=== PATIENT | female | born 1970 | race Caucasian/White ===

== ENCOUNTER 2016-08-18 20:40 | Emergency (ER) | payer OTHER ==
[~2016-08-18] VITALS: Ht 177.8 cm; Wt 70.5 kg
[2016-08-18] MEDS ORDERED: LEVO125T4 PO (20:58)
[2016-08-18] MEDS ORDERED: BUTA1CAP16 PO (20:58)
[2016-08-18] MEDS ORDERED: FURO80 PO (20:58)
[2016-08-18] MEDS ORDERED: PROM25 PO (20:58)
[2016-08-18] MEDS ORDERED: SPIR100T PO (20:58)
[2016-08-18] MEDS ORDERED: CIPR-278 PO (20:58)
[2016-08-18] MEDS ORDERED: FERR325C PO (20:58)
[2016-08-18 21:21] LABS: BASOPHILS # (AUTO) 0.02 K/uL (0.00-0.20); BASOPHILS % (AUTO) 0.6 % (0.0-2.0); EOSINOPHILS # (AUTO) 0.05 K/uL (0.00-0.70); EOSINOPHILS % (AUTO) 1.47 % (1.0-6.0); HEMATOCRIT 29.7 % (36-46); HEMOGLOBIN 9.5 g/dL (12.0-16.0); LYMPHOCYTES # (AUTO) 1.3 K/uL (1.0-4.8); LYMPHOCYTES % (AUTO) 38.1 % (22.0-44.0); MEAN CORPUSCULAR HEMOGLOBIN 24.3 pg (26.0-34.0); MEAN CORPUSCULAR VOLUME 76 fL (80-100); MONOCYTES # (AUTO) 0.3 K/uL (0.1-1.0); MONOCYTES % (AUTO) 8.2 % (2.0-9.0); NEUTROPHILS # (AUTO) 1.7 K/uL (1.8-7.7); NEUTROPHILS % (AUTO) 51.7 % (40.0-70.0); PLATELET COUNT (AUTO) 204 K/uL (150-450); RED BLOOD CELL COUNT(AUTO) 3.91 MIL/uL (4.00-5.20); RED CELL DISTRIBUTION WIDTH 19.8 % (11.5-14.5); WHITE BLOOD COUNT (AUTO) 3.4 K/uL (4.5-11.0)
[2016-08-18 21:29] LABS: ANION GAP 7 mmol/L (8-16); CALCIUM, TOTAL 8.3 mg/dL (8.8-10.5); CARBON DIOXIDE 27 mmol/L (22-29); CHLORIDE 108 mmol/L (98-107); CREATININE 0.91 mg/dL (0.60-1.30); GLOMERULAR FILTR. RATE CALC > 60 mL/min (>60); POTASSIUM 3.6 mmol/L (3.5-5.1); SODIUM SERUM 142 mmol/L (136-145); UREA NITROGEN, BLOOD 15 mg/dL (7-18)
[2016-08-18] MEDS ORDERED: MORPHINE SULFATE 4 MG/ML SYRINGE IVP ONE (21:30)
[2016-08-18] MEDS ORDERED: SODIUM CHLORIDE 0.9% 1,000 ML IV ONE (21:30)
[2016-08-18] MEDS ORDERED: ONDANSETRON HCL 4 MG/2 ML VIAL IVP ONE (21:30)
[2016-08-18 21:36] LABS: ALANINE AMINOTRANSFERASE 31 U/L (12-78); ALBUMIN 3.3 g/dL (3.4-5.0); ASPARTATE AMINOTRANSFERASE 46 U/L (15-37); BILIRUBIN,TOTAL 0.2 mg/dL (0.1-1.0); TOTAL PROTEIN, SERUM 6.9 g/dL (6.4-8.2)
[2016-08-18 21:37] LABS: RBC MORPHOLOGY COMMENT ABNORMAL RBC MORPH
[2016-08-18 22:06] LABS: APPEARANCE,URINE CLEAR (CLEAR); GLUCOSE, URINE (UA) NEGATIVE (NEGATIVE); KETONES,URINE NEGATIVE (NEGATIVE); LEUKOCYTE ESTERASE ,URINE NEGATIVE (NEGATIVE); OCCULT BLOOD,URINE NEGATIVE (NEGATIVE); PROTEIN,URINE NEGATIVE (NEGATIVE)
[2016-08-18 22:16] LABS: ADD UA MICROSCOPIC NO
[2016-08-18 23:00] VITALS: BP 129/70
== END 2016-08-18 23:50 | disposition home or self-care (01) ==
LOC: EMS 20:46
DX: R10.9 Unspecified abdominal pain (principal); G43.909 Migraine, unspecified, not intractable, without status migrainosus
CPT/HCPCS: 36415; 80053; 81003; 83690; 84703; 85025; 96361; 96374; 96375; 99284; J2270; J2405; J7030

== ENCOUNTER 2017-01-16 12:10 | Emergency (ER) | payer OTHER, MEDICAID ==
[~2017-01-16] VITALS: Ht 177.8 cm; Wt 68.2 kg
[~2017-01-16 12:10] MED LIST: BUTA1CAP16 PO; CIPR-278 PO; FERR325C PO; FURO80 PO; LEVO125T4 PO; PROM25 PO; SPIR100T PO
[2017-01-16 13:15] LABS: BASOPHILS # (AUTO) 0.05 K/uL (0.00-0.20); BASOPHILS % (AUTO) 1.5 % (0.0-2.0); EOSINOPHILS # (AUTO) 0.05 K/uL (0.00-0.70); EOSINOPHILS % (AUTO) 1.54 % (1.0-6.0); HEMATOCRIT 29.9 % (36-46); HEMOGLOBIN 9.7 g/dL (12.0-16.0); LYMPHOCYTES % (AUTO) 30.4 % (22.0-44.0); MEAN CORPUSCULAR HEMOGLOBIN 25.5 pg (26.0-34.0); MEAN CORPUSCULAR HGB CONC 32.4 G/dL (31.0-37.0); MEAN CORPUSCULAR VOLUME 79 fL (80-100); MONOCYTES # (AUTO) 0.3 K/uL (0.1-1.0); MONOCYTES % (AUTO) 8.9 % (2.0-9.0); NEUTROPHILS # (AUTO) 1.9 K/uL (1.8-7.7); NEUTROPHILS % (AUTO) 57.6 % (40.0-70.0); PLATELET COUNT (AUTO) 243 K/uL (150-450); RED CELL DISTRIBUTION WIDTH 17.6 % (11.5-14.5); WHITE BLOOD COUNT (AUTO) 3.4 K/uL (4.5-11.0)
[2017-01-16 13:16] LABS: RBC MORPHOLOGY COMMENT ABNORMAL RBC MORPH
[2017-01-16] MEDS ORDERED: ONDANSETRON HCL 4 MG/2 ML VIAL IVP ONE ×2 (14:30→17:15)
[2017-01-16] MEDS ORDERED: MORPHINE SULFATE 4 MG/ML SYRINGE IVP ONE (14:30)
[2017-01-16 14:39] LABS: ANION GAP 9 mmol/L (8-16); CARBON DIOXIDE 27 mmol/L (22-29); CHLORIDE 107 mmol/L (98-107); CREATININE 0.71 mg/dL (0.60-1.30); GLOMERULAR FILTR. RATE CALC > 60 mL/min (>60); POTASSIUM 4.1 mmol/L (3.5-5.1); SODIUM SERUM 143 mmol/L (136-145); UREA NITROGEN, BLOOD 13 mg/dL (7-18)
[2017-01-16 14:45] LABS: ALANINE AMINOTRANSFERASE 48 U/L (12-78); ALBUMIN 3.2 g/dL (3.4-5.0); ASPARTATE AMINOTRANSFERASE 53 U/L (15-37); BILIRUBIN,TOTAL 0.3 mg/dL (0.1-1.0); TOTAL PROTEIN, SERUM 7.2 g/dL (6.4-8.2)
[2017-01-16 14:49] LABS: INR 0.9 (0.9-1.1)
[2017-01-16 14:53] LABS: B-TYPE NATRIURETIC PEPTIDE 19 pg/mL (0-100)
[2017-01-16 15:09] LABS: APPEARANCE,URINE CLEAR (CLEAR); GLUCOSE, URINE (UA) NEGATIVE (NEGATIVE); KETONES,URINE NEGATIVE (NEGATIVE); LEUKOCYTE ESTERASE ,URINE NEGATIVE (NEGATIVE); OCCULT BLOOD,URINE NEGATIVE (NEGATIVE); PH,URINE 5.5 (5.0-8.0); PROTEIN,URINE NEGATIVE (NEGATIVE)
[2017-01-16 15:10] LABS: ADD UA MICROSCOPIC NO
[2017-01-16] MEDS ORDERED: HYDROmorphone 2 MG/ML SYRINGE IVP ONE (17:15)
[2017-01-16 17:30] VITALS: BP 122/85
== END 2017-01-16 18:22 | disposition home or self-care (01) ==
LOC: EMS 12:13
DX: R18.8 Other ascites (principal); N20.0 Calculus of kidney; N13.4 Hydroureter; D64.9 Anemia, unspecified
CPT/HCPCS: 36415; 49083; 74176; 76942; 80053; 81003; 83880; 84703; 85025; 85610; 85730; 96374; 96375; 96376; 99285; J1170; J2270; J2405

== ENCOUNTER 2017-03-21 07:13 | Emergency (ER) | payer OTHER, MEDICAID ==
[~2017-03-21] VITALS: Ht 175.3 cm; Wt 69.0 kg
[~2017-03-21 07:13] MED LIST changes: -BUTA1CAP16 PO; -CIPR-278 PO; -PROM25 PO
[2017-03-21] MEDS ORDERED: OxyCODONE HCL/ACETAMINOPHEN 5-325 MG TABLET PO ONE (08:00)
[2017-03-21 08:06] LABS: APPEARANCE,URINE CLOUDY (CLEAR); GLUCOSE, URINE (UA) NEGATIVE (NEGATIVE); KETONES,URINE NEGATIVE (NEGATIVE); LEUKOCYTE ESTERASE ,URINE NEGATIVE (NEGATIVE); OCCULT BLOOD,URINE NEGATIVE (NEGATIVE); PH,URINE 5.5 (5.0-8.0); PROTEIN,URINE NEGATIVE (NEGATIVE)
[2017-03-21 08:12] LABS: ADD UA MICROSCOPIC YES
[2017-03-21 08:13] LABS: RBC,URINE None Seen /HPF (0-2); SQUAMOUS EPITHELIAL CELL,UR Many /LPF (None Seen); WBC,URINE 0-2 /HPF (0-5)
[2017-03-21 12:48] VITALS: BP 121/83
== END 2017-03-21 12:55 | disposition home or self-care (01) ==
LOC: EMS 07:14
DX: R07.89 Other chest pain (principal); R30.9 Painful micturition, unspecified; W19.XXXA Unspecified fall, initial encounter; Y93.89 Activity, other specified; Y92.89 Other specified places as the place of occurrence of the external cause; Y99.8 Other external cause status
CPT/HCPCS: 99285

== ENCOUNTER 2017-03-25 07:56 | Emergency (ER) | payer OTHER, MEDICAID ==
[~2017-03-25] VITALS: Ht 177.8 cm; Wt 68.2 kg
[2017-03-25] MEDS ORDERED: HYDROCODONE/ACETAMINOPHEN 5-325 MG TABLET PO ONE (08:45)
[2017-03-25] MEDS ORDERED: ONDANSETRON HCL 4 MG TABLET PO ONE (08:45)
[2017-03-25 09:07] LABS: GLUCOSE, URINE (UA) NEGATIVE (NEGATIVE); KETONES,URINE NEGATIVE (NEGATIVE); LEUKOCYTE ESTERASE ,URINE NEGATIVE (NEGATIVE); OCCULT BLOOD,URINE NEGATIVE (NEGATIVE); PH,URINE 5.5 (5.0-8.0); PROTEIN,URINE TRACE (NEGATIVE)
[2017-03-25 09:15] LABS: ANION GAP 11 mmol/L (8-16); CALCIUM, TOTAL 8.9 mg/dL (8.8-10.5); CARBON DIOXIDE 23 mmol/L (22-29); CHLORIDE 107 mmol/L (98-107); CREATININE 0.76 mg/dL (0.60-1.30); GLOMERULAR FILTR. RATE CALC > 60 mL/min (>60); POTASSIUM 4.1 mmol/L (3.5-5.1); SODIUM SERUM 141 mmol/L (136-145); UREA NITROGEN, BLOOD 18 mg/dL (7-18)
[2017-03-25 09:16] LABS: ADD UA MICROSCOPIC YES; APPEARANCE,URINE SLIGHTLY CLOUDY (CLEAR)
[2017-03-25 09:18] LABS: RBC,URINE None Seen /HPF (0-2)
[2017-03-25 09:19] LABS: SQUAMOUS EPITHELIAL CELL,UR Many /LPF (None Seen)
[2017-03-25 09:21] LABS: ALANINE AMINOTRANSFERASE 29 U/L (12-78); ALBUMIN 3.7 g/dL (3.4-5.0); ASPARTATE AMINOTRANSFERASE 29 U/L (15-37); BILIRUBIN,TOTAL 0.2 mg/dL (0.1-1.0); TOTAL PROTEIN, SERUM 7.2 g/dL (6.4-8.2)
[2017-03-25 09:27] LABS: BASOPHILS # (AUTO) 0.05 K/uL (0.00-0.20); BASOPHILS % (AUTO) 1.8 % (0.0-2.0); EOSINOPHILS # (AUTO) 0.05 K/uL (0.00-0.70); EOSINOPHILS % (AUTO) 1.74 % (1.0-6.0); HEMOGLOBIN 9.2 g/dL (12.0-16.0); LYMPHOCYTES % (AUTO) 34.9 % (22.0-44.0); MEAN CORPUSCULAR HEMOGLOBIN 23.5 pg (26.0-34.0); MEAN CORPUSCULAR HGB CONC 30.6 G/dL (31.0-37.0); MEAN CORPUSCULAR VOLUME 77 fL (80-100); MONOCYTES # (AUTO) 0.2 K/uL (0.1-1.0); MONOCYTES % (AUTO) 8.5 % (2.0-9.0); NEUTROPHILS # (AUTO) 1.5 K/uL (1.8-7.7); NEUTROPHILS % (AUTO) 53.1 % (40.0-70.0); PLATELET COUNT (AUTO) 271 K/uL (150-450); RED BLOOD CELL COUNT(AUTO) 3.91 MIL/uL (4.00-5.20); RED CELL DISTRIBUTION WIDTH 16.7 % (11.5-14.5); WHITE BLOOD COUNT (AUTO) 2.8 K/uL (4.5-11.0)
[2017-03-25 09:59] LABS: PROTHROMBIN TIME 10.7 SEC (9.4-11.6)
[2017-03-25 10:07] LABS: PARTIAL THROMBOPLASTIN TIME < 20 SEC (25-35)
[2017-03-25 10:15] VITALS: BP 152/83
== END 2017-03-25 10:58 | disposition home or self-care (01) ==
LOC: EMS 07:57
DX: R10.11 Right upper quadrant pain (principal); R10.12 Left upper quadrant pain
CPT/HCPCS: 36415; 80053; 81001; 82140; 83690; 84703; 85025; 85610; 85730; 99284; Q0162

== ENCOUNTER 2017-04-16 16:13 | Emergency (ER) | payer OTHER, MEDICAID ==
[~2017-04-16] VITALS: Ht 177.8 cm; Wt 68.2 kg
[2017-04-16 17:33] LABS: BASOPHILS % (AUTO) 0.5 % (0.0-2.0); EOSINOPHILS % (AUTO) 2.5 % (1.0-6.0); HEMATOCRIT 26.9 % (36-46); HEMOGLOBIN 8.6 g/dL (12.0-16.0); LYMPHOCYTES # (AUTO) 1.4 K/uL (1.0-4.8); LYMPHOCYTES % (AUTO) 37.1 % (22.0-44.0); MEAN CORPUSCULAR HEMOGLOBIN 23.5 pg (26.0-34.0); MEAN CORPUSCULAR HGB CONC 32.1 G/dL (31.0-37.0); MEAN CORPUSCULAR VOLUME 73 fL (80-100); MONOCYTES # (AUTO) 0.4 K/uL (0.1-1.0); MONOCYTES % (AUTO) 10.4 % (2.0-9.0); NEUTROPHILS # (AUTO) 1.8 K/uL (1.8-7.7); NEUTROPHILS % (AUTO) 49.5 % (40.0-70.0); PLATELET COUNT (AUTO) 268 K/uL (150-450); RED BLOOD CELL COUNT(AUTO) 3.66 MIL/uL (4.00-5.20); RED CELL DISTRIBUTION WIDTH 16.9 % (11.5-14.5); WHITE BLOOD COUNT (AUTO) 3.7 K/uL (4.5-11.0)
[2017-04-16 17:45] LABS: ANION GAP 10 mmol/L (8-16); CALCIUM, TOTAL 8.7 mg/dL (8.8-10.5); CARBON DIOXIDE 25 mmol/L (22-29); CHLORIDE 106 mmol/L (98-107); CREATININE 0.87 mg/dL (0.60-1.30); GLOMERULAR FILTR. RATE CALC > 60 mL/min (>60); POTASSIUM 3.4 mmol/L (3.5-5.1); SODIUM SERUM 141 mmol/L (136-145); UREA NITROGEN, BLOOD 15 mg/dL (7-18)
[2017-04-16 17:51] LABS: ALANINE AMINOTRANSFERASE 46 U/L (12-78); ALBUMIN 3.4 g/dL (3.4-5.0); ASPARTATE AMINOTRANSFERASE 45 U/L (15-37); BILIRUBIN,TOTAL 0.2 mg/dL (0.1-1.0); TOTAL PROTEIN, SERUM 6.9 g/dL (6.4-8.2)
[2017-04-16] MEDS ORDERED: OxyCODONE HCL 5 MG IR TABLET PO ONE (18:30)
[2017-04-16] MEDS ORDERED: IOVERSOL 320 MG/ML 100 ML VIAL ONE (19:28)
[2017-04-16 20:55] VITALS: BP 127/73
== END 2017-04-16 21:14 | disposition home or self-care (01) ==
LOC: EMS 16:15
DX: R18.8 Other ascites (principal); D64.9 Anemia, unspecified
CPT/HCPCS: 36415; 74177; 80053; 83690; 84703; 85025; 99285; Q9967

== ENCOUNTER 2017-04-17 11:23 | Emergency (ER) | payer OTHER, MEDICAID ==
[~2017-04-17] VITALS: Ht 177.8 cm; Wt 68.2 kg
[2017-04-17] MEDS ORDERED: MORPHINE SULFATE 4 MG/ML SYRINGE IVP ONE (13:45)
[2017-04-17 15:17] VITALS: BP 114/71
== END 2017-04-17 15:59 | disposition home or self-care (01) ==
LOC: EMS 11:25
DX: R18.8 Other ascites (principal); Z98.51 Tubal ligation status
CPT/HCPCS: 49083; 76942; 96374; 99285; J2270

== ENCOUNTER 2017-05-02 19:16 | Emergency (ER) | payer OTHER ==
[~2017-05-02] VITALS: Ht 177.8 cm; Wt 68.0 kg
[2017-05-02] MEDS ORDERED: PROM25 PO (19:25)
[2017-05-02] MEDS ORDERED: FIORC PO (19:25)
[2017-05-02] MEDS ORDERED: PROMETHAZINE HCL 25 MG TABLET PO ONE (20:00)
[2017-05-02] MEDS ORDERED: BUTALBITAL/ACETAMINOPHEN/CAFFEINE 50-325-40 MG TABLET PO ONE (20:00)
[2017-05-02 20:41] VITALS: BP 119/67
== END 2017-05-02 20:46 | disposition home or self-care (01) ==
LOC: EMS 19:18
DX: G43.909 Migraine, unspecified, not intractable, without status migrainosus (principal)
CPT/HCPCS: 99283

== ENCOUNTER 2017-05-10 13:34 | Inpatient (IN) | payer OTHER, MEDICAID ==
[~2017-05-10] VITALS: Ht 177.8 cm; Wt 68.2 kg
[~2017-05-10 13:34] MED LIST changes: +FIORC PO; +PROM25 PO
[2017-05-10 14:24] LABS: APPEARANCE,URINE CLEAR (CLEAR); GLUCOSE, URINE (UA) NEGATIVE (NEGATIVE); KETONES,URINE NEGATIVE (NEGATIVE); LEUKOCYTE ESTERASE ,URINE NEGATIVE (NEGATIVE); OCCULT BLOOD,URINE NEGATIVE (NEGATIVE); PROTEIN,URINE NEGATIVE (NEGATIVE)
[2017-05-10 14:27] LABS: ADD UA MICROSCOPIC NO
[2017-05-10] MEDS ORDERED: KETOROLAC TROMETHAMINE 30 MG/ML VIAL IVP ONE (15:30)
[2017-05-10] MEDS ORDERED: ONDANSETRON HCL 4 MG/2 ML VIAL IVP ONE (15:30)
[2017-05-10 16:06] LABS: BASOPHILS % (AUTO) 0.4 % (0.0-2.0); EOSINOPHILS % (AUTO) 1.2 % (1.0-6.0); HEMATOCRIT 25.7 % (36-46); HEMOGLOBIN 8.3 g/dL (12.0-16.0); LYMPHOCYTES # (AUTO) 0.9 K/uL (1.0-4.8); MEAN CORPUSCULAR HEMOGLOBIN 23.1 pg (26.0-34.0); MEAN CORPUSCULAR HGB CONC 32.3 G/dL (31.0-37.0); MEAN CORPUSCULAR VOLUME 71 fL (80-100); MONOCYTES # (AUTO) 0.3 K/uL (0.1-1.0); MONOCYTES % (AUTO) 8.5 % (2.0-9.0); NEUTROPHILS # (AUTO) 2.2 K/uL (1.8-7.7); NEUTROPHILS % (AUTO) 63.9 % (40.0-70.0); PLATELET COUNT (AUTO) 182 K/uL (150-450); RED BLOOD CELL COUNT(AUTO) 3.59 MIL/uL (4.00-5.20); RED CELL DISTRIBUTION WIDTH 17.6 % (11.5-14.5); WHITE BLOOD COUNT (AUTO) 3.4 K/uL (4.5-11.0)
[2017-05-10] MEDS ORDERED: POVIDONE-IODINE 10% 120 ML SOLUTION TP ONE (16:12)
[2017-05-10 16:22] LABS: ANION GAP 13 mmol/L (8-16); CALCIUM, TOTAL 8.6 mg/dL (8.8-10.5); CARBON DIOXIDE 21 mmol/L (22-29); CHLORIDE 106 mmol/L (98-107); CREATININE 0.85 mg/dL (0.60-1.30); GLOMERULAR FILTR. RATE CALC > 60 mL/min (>60); POTASSIUM 3.9 mmol/L (3.5-5.1); SODIUM SERUM 140 mmol/L (136-145); UREA NITROGEN, BLOOD 13 mg/dL (7-18)
[2017-05-10 16:34] LABS: ALANINE AMINOTRANSFERASE 28 U/L (12-78); ALBUMIN 3.4 g/dL (3.4-5.0); ASPARTATE AMINOTRANSFERASE 26 U/L (15-37); BILIRUBIN,TOTAL 0.5 mg/dL (0.1-1.0); TOTAL PROTEIN, SERUM 6.6 g/dL (6.4-8.2)
[2017-05-10 16:36] LABS: RBC MORPHOLOGY COMMENT ABNORMAL RBC MORPH
[2017-05-10] MEDS ORDERED: OxyCODONE HCL/ACETAMINOPHEN 5-325 MG TABLET PO ONE (16:45)
[2017-05-10 16:46] LABS: INR 1.1 (0.9-1.1); PROTHROMBIN TIME 11.4 SEC (9.4-11.6)
[2017-05-10 18:10] LABS: APPEARANCE,UNSPUN,BODY FLUID SLIGHTLY CLOUDY (CLEAR)
[2017-05-10 18:11] LABS: COLOR,BODY FLUID YELLOW (LT YELLOW)
[2017-05-10 18:56] LABS: OTHER CELLS,BODY FLUID 5
[2017-05-10] MEDS ORDERED: CefTRIAXone 1 GM/DEXTROSE 50 ML IV ONE (19:45)
[2017-05-10] MEDS ORDERED: ONDANSETRON HCL 4 MG/2 ML VIAL IVP PRN ×2 (20:00→23:45)
[2017-05-10] MEDS ORDERED: 0.9% SODIUM CHLORIDE 10 ML SYRINGE IVP PRN ×2 (20:00→23:45)
[2017-05-10] MEDS ORDERED: ACETAMINOPHEN 325 MG TABLET PO PRN (20:00)
[2017-05-10 21:45] VITALS: BP 126/92
[2017-05-10] MEDS ORDERED: OxyCODONE HCL/ACETAMINOPHEN 5-325 MG TABLET PO PRN (23:45)
[2017-05-11] MEDS: OxyCODONE HCL/ACETAMINOPHEN 5-325 MG TABLET PO PRN ×6 (00:12→22:21)
[2017-05-11 00:35] VITALS: BP 110/71
[2017-05-11] MEDS: LEVOTHYROXINE SODIUM 125 MCG TABLET PO SCH (05:40)
[2017-05-11 05:50] VITALS: BP 107/56
[2017-05-11 07:04] LABS: BASOPHILS % (AUTO) 0.4 % (0.0-2.0); EOSINOPHILS % (AUTO) 2.2 % (1.0-6.0); HEMATOCRIT 26.2 % (36-46); HEMOGLOBIN 8.3 g/dL (12.0-16.0); LYMPHOCYTES # (AUTO) 1.1 K/uL (1.0-4.8); LYMPHOCYTES % (AUTO) 41.5 % (22.0-44.0); MEAN CORPUSCULAR HEMOGLOBIN 22.9 pg (26.0-34.0); MEAN CORPUSCULAR HGB CONC 31.8 G/dL (31.0-37.0); MEAN CORPUSCULAR VOLUME 72 fL (80-100); MONOCYTES # (AUTO) 0.3 K/uL (0.1-1.0); MONOCYTES % (AUTO) 10.4 % (2.0-9.0); NEUTROPHILS # (AUTO) 1.2 K/uL (1.8-7.7); NEUTROPHILS % (AUTO) 45.5 % (40.0-70.0); PLATELET COUNT (AUTO) 158 K/uL (150-450); RED BLOOD CELL COUNT(AUTO) 3.64 MIL/uL (4.00-5.20); RED CELL DISTRIBUTION WIDTH 18.1 % (11.5-14.5); WHITE BLOOD COUNT (AUTO) 2.6 K/uL (4.5-11.0)
[2017-05-11 07:43] LABS: ANION GAP 12 mmol/L (8-16); CALCIUM, TOTAL 8.7 mg/dL (8.8-10.5); CARBON DIOXIDE 23 mmol/L (22-29); CHLORIDE 108 mmol/L (98-107); CREATININE 0.92 mg/dL (0.60-1.30); GLOMERULAR FILTR. RATE CALC > 60 mL/min (>60); POTASSIUM 3.7 mmol/L (3.5-5.1); SODIUM SERUM 143 mmol/L (136-145); UREA NITROGEN, BLOOD 12 mg/dL (7-18)
[2017-05-11] MEDS: SPIRONOLACTONE 50 MG TABLET PO SCH (08:08)
[2017-05-11] MEDS: FERROUS SULFATE 325 MG EC TABLET PO SCH ×3 (08:08→18:02)
[2017-05-11] MEDS: FUROSEMIDE 40 MG TABLET PO SCH (08:08)
[2017-05-11] MEDS: PANTOPRAZOLE SODIUM 40 MG/VIAL IVP SCH (08:11)
[2017-05-11 09:29] LABS: RBC MORPHOLOGY COMMENT ABNORMAL RBC MORPH
[2017-05-11 11:47] VITALS: BP 99/61
[2017-05-11] MEDS: BUTALBITAL/ASPIRIN/CAFFEINE 50-325-40 MG CAPSULE PO PRN (12:00)
[2017-05-11] MEDS: ASPIRIN 81 MG CHEWABLE TABLET PO SCH (12:01)
[2017-05-11] MEDS: CIPROFLOXACIN HCL 500 MG TABLET PO SCH ×2 (12:01→21:08)
[2017-05-11 16:22] VITALS: BP 95/62
[2017-05-12 00:52] VITALS: BP 106/72
[2017-05-12] MEDS: OxyCODONE HCL/ACETAMINOPHEN 5-325 MG TABLET PO PRN ×6 (02:06→22:25)
[2017-05-12] MEDS: LEVOTHYROXINE SODIUM 125 MCG TABLET PO SCH (05:32)
[2017-05-12 06:46] VITALS: BP 113/70
[2017-05-12] MEDS: DOCUSATE SODIUM 100 MG CAPSULE PO SCH ×2 (09:00→20:35)
[2017-05-12] MEDS: FUROSEMIDE 40 MG TABLET PO SCH (09:41)
[2017-05-12] MEDS: FERROUS SULFATE 325 MG EC TABLET PO SCH ×3 (09:42→17:12)
[2017-05-12] MEDS: ASPIRIN 81 MG CHEWABLE TABLET PO SCH (09:42)
[2017-05-12] MEDS: CIPROFLOXACIN HCL 500 MG TABLET PO SCH ×2 (09:42→20:34)
[2017-05-12] MEDS: PANTOPRAZOLE SODIUM 40 MG/VIAL IVP SCH (09:42)
[2017-05-12] MEDS: SPIRONOLACTONE 50 MG TABLET PO SCH (09:43)
[2017-05-12] MEDS: BUTALBITAL/ASPIRIN/CAFFEINE 50-325-40 MG CAPSULE PO PRN ×3 (12:34→21:28)
[2017-05-12 12:44] VITALS: BP 120/82
[2017-05-12 18:07] VITALS: BP 116/71
[2017-05-12 20:30] VITALS: BP 109/75
[2017-05-13] VITALS: BP 115/75
[2017-05-13] MEDS: OxyCODONE HCL/ACETAMINOPHEN 5-325 MG TABLET PO PRN ×3 (02:25→10:29)
[2017-05-13] MEDS: LEVOTHYROXINE SODIUM 125 MCG TABLET PO SCH (06:27)
[2017-05-13 07:45] VITALS: BP 114/72
[2017-05-13] MEDS: DOCUSATE SODIUM 100 MG CAPSULE PO SCH (08:50)
[2017-05-13] MEDS: FERROUS SULFATE 325 MG EC TABLET PO SCH ×2 (08:50→12:00)
[2017-05-13] MEDS: SPIRONOLACTONE 50 MG TABLET PO SCH (08:50)
[2017-05-13] MEDS: ASPIRIN 81 MG CHEWABLE TABLET PO SCH (08:51)
[2017-05-13] MEDS: FUROSEMIDE 40 MG TABLET PO SCH (08:51)
[2017-05-13] MEDS: CIPROFLOXACIN HCL 500 MG TABLET PO SCH (08:51)
[2017-05-13] MEDS: BUTALBITAL/ASPIRIN/CAFFEINE 50-325-40 MG CAPSULE PO PRN ×2 (08:52→13:19)
[2017-05-13] MEDS: PANTOPRAZOLE SODIUM 40 MG/VIAL IVP SCH (08:59)
[2017-05-13 11:30] VITALS: BP 106/81
[2017-05-14] MEDS ORDERED: CIPR-278 PO (07:37)
== END 2017-05-13 13:30 | disposition home or self-care (01) | DRG 372 ==
LOC: EMS 13:36 → 4E 19:50
PROVIDERS: ADMIT Internal Medicine; ATTEND Internal Medicine
PROC: 0W9G3ZX Drainage of Peritoneal Cavity, Percutaneous Approach, Diagnostic (ICD-10-PCS; principal; 2017-05-10)
DX: K65.2 Spontaneous bacterial peritonitis (principal); R18.8 Other ascites; D61.818 Other pancytopenia; K76.6 Portal hypertension; K74.60 Unspecified cirrhosis of liver; E03.9 Hypothyroidism, unspecified; G43.909 Migraine, unspecified, not intractable, without status migrainosus; Z90.710 Acquired absence of both cervix and uterus; Z98.84 Bariatric surgery status; D64.9 Anemia, unspecified
CPT/HCPCS: 49082; 87040; 87070; 87205; 89051; 96365; 96375; 99285; C9113; J0696; J1885; J2405

== ENCOUNTER 2017-05-14 07:32 | Emergency (ER) | payer OTHER, MEDICAID ==
[~2017-05-14] VITALS: Ht 177.8 cm; Wt 68.2 kg
[2017-05-14] MEDS ORDERED: CIPR-278 PO (07:37)
[2017-05-14] MEDS ORDERED: PROMETHAZINE HCL 25 MG TABLET PO ONE (10:00)
[2017-05-14] MEDS ORDERED: BUTALBITAL/ACETAMINOPHEN/CAFFEINE 50-325-40 MG TABLET PO ONE (10:00)
[2017-05-14 10:35] VITALS: BP 122/77
== END 2017-05-14 10:39 | disposition home or self-care (01) ==
LOC: EMS 07:33
DX: G43.909 Migraine, unspecified, not intractable, without status migrainosus (principal); Z98.84 Bariatric surgery status
CPT/HCPCS: 99283

== ENCOUNTER 2017-05-19 18:36 | Emergency (ER) | payer OTHER, MEDICAID ==
[~2017-05-19] VITALS: Ht 177.8 cm; Wt 68.2 kg
[~2017-05-19 18:36] MED LIST changes: +CIPR-278 PO
[2017-05-19 18:39] VITALS: BP 136/84
[2017-05-19 19:50] LABS: BASOPHILS % (AUTO) 0.6 % (0.0-2.0); HEMATOCRIT 27.9 % (36-46); HEMOGLOBIN 8.8 g/dL (12.0-16.0); LYMPHOCYTES % (AUTO) 27.4 % (22.0-44.0); MEAN CORPUSCULAR HEMOGLOBIN 22.9 pg (26.0-34.0); MEAN CORPUSCULAR HGB CONC 31.5 G/dL (31.0-37.0); MEAN CORPUSCULAR VOLUME 73 fL (80-100); MONOCYTES # (AUTO) 0.3 K/uL (0.1-1.0); NEUTROPHILS # (AUTO) 2.3 K/uL (1.8-7.7); PLATELET COUNT (AUTO) 262 K/uL (150-450); RED BLOOD CELL COUNT(AUTO) 3.84 MIL/uL (4.00-5.20); WHITE BLOOD COUNT (AUTO) 3.7 K/uL (4.5-11.0)
[2017-05-19 20:01] LABS: ANION GAP 8 mmol/L (8-16); CALCIUM, TOTAL 8.9 mg/dL (8.8-10.5); CARBON DIOXIDE 28 mmol/L (22-29); CHLORIDE 105 mmol/L (98-107); CREATININE 0.85 mg/dL (0.60-1.30); GLOMERULAR FILTR. RATE CALC > 60 mL/min (>60); POTASSIUM 3.6 mmol/L (3.5-5.1); SODIUM SERUM 141 mmol/L (136-145); UREA NITROGEN, BLOOD 18 mg/dL (7-18)
[2017-05-19 20:09] LABS: ALANINE AMINOTRANSFERASE 38 U/L (12-78); ALBUMIN 3.4 g/dL (3.4-5.0); ASPARTATE AMINOTRANSFERASE 67 U/L (15-37); BILIRUBIN,TOTAL 0.1 mg/dL (0.1-1.0); TOTAL PROTEIN, SERUM 6.9 g/dL (6.4-8.2)
[2017-05-19 20:29] LABS: RBC MORPHOLOGY COMMENT ABNORMAL RBC MORPH
== END 2017-05-19 21:14 | disposition left against medical advice (07) ==
LOC: EMS 18:37
DX: R10.9 Unspecified abdominal pain (principal); Z53.21 Procedure and treatment not carried out due to patient leaving prior to being seen by health care provider

== ENCOUNTER 2017-06-07 12:57 | Emergency (ER) | payer MEDICAID, OTHER ==
[~2017-06-07] VITALS: Ht 177.8 cm; Wt 68.2 kg
[2017-06-07] MEDS ORDERED: PROMETHAZINE HCL 25 MG TABLET PO ONE (15:00)
[2017-06-07] MEDS ORDERED: BUTALBITAL/ACETAMINOPHEN/CAFFEINE 50-325-40 MG TABLET PO ONE (15:00)
[2017-06-07 15:10] VITALS: BP 118/84
== END 2017-06-07 15:17 | disposition home or self-care (01) ==
LOC: EMS 12:58
DX: G43.909 Migraine, unspecified, not intractable, without status migrainosus (principal); R18.8 Other ascites; I10 Essential (primary) hypertension; Z90.710 Acquired absence of both cervix and uterus; Z98.84 Bariatric surgery status
CPT/HCPCS: 99283

== ENCOUNTER 2017-11-08 08:42 | Emergency (ER) | payer MEDICAID ==
[~2017-11-08] VITALS: Ht 177.8 cm; Wt 68.2 kg
[2017-11-08] MEDS ORDERED: BUTALBITAL/ACETAMINOPHEN/CAFFEINE 50-325-40 MG TABLET PO ONE (09:15)
[2017-11-08 10:15] VITALS: BP 137/71
== END 2017-11-08 10:43 | disposition home or self-care (01) ==
LOC: EMS 08:44
DX: S20.211A Contusion of right front wall of thorax, initial encounter (principal); G43.909 Migraine, unspecified, not intractable, without status migrainosus; Y04.0XXA Assault by unarmed brawl or fight, initial encounter; Y93.89 Activity, other specified; Y92.89 Other specified places as the place of occurrence of the external cause; Y99.8 Other external cause status
CPT/HCPCS: 99283

== ENCOUNTER 2017-12-07 11:23 | Emergency (ER) | payer MEDICAID ==
[~2017-12-07] VITALS: Ht 177.8 cm; Wt 68.2 kg
[2017-12-07] MEDS ORDERED: PROMETHAZINE HCL 25 MG TABLET PO ONE (12:45)
[2017-12-07] MEDS ORDERED: BUTALBITAL/ASPIRIN/CAFFEINE 50-325-40 MG CAPSULE PO ONE (12:45)
[2017-12-07 13:02] VITALS: BP 123/71
== END 2017-12-07 13:08 | disposition home or self-care (01) ==
LOC: EMS 11:25
DX: G43.909 Migraine, unspecified, not intractable, without status migrainosus (principal); Z79.899 Other long term (current) drug therapy
CPT/HCPCS: 99283